=== PATIENT | male | born 1995 | race Caucasian/White ===

== ENCOUNTER 2020-11-15 17:05 | Outpatient (REF) | payer OTHER, SELFPAY ==
[2020-11-28 09:02] LABS: Adalimumab Drug Level 11.6 mcg/mL; Anti-Adalimumab Antibody <10 AU (<10)
== END 2020-11-15 17:06 | disposition home or self-care (01) ==
LOC: HO.LAB 17:05
PROVIDERS: PCP Nurse Practitioner Family; Visit Provider Internal Medicine Gastroenterology
DX: K50.10 Crohn's disease of large intestine without complications (principal)
CPT/HCPCS: 36415; 80145; 83520